=== PATIENT | male | born 1995 | race Caucasian/White ===

== ENCOUNTER 2017-03-01 09:11 | Day surgery (SDC) | payer OTHER ==
[~2017-03-01] VITALS: Ht 180.3 cm; Wt 102.1 kg
--- NOTE | ~2017-03-01 | OP ---
PATIENT NAME: JOSE RAUL THACKER MEDICAL RECORD: [id number] :95 LOCATION:[facility] ADMISSION DATE: SURGEON: MAURISIO HOWELL MD DATE OF OPERATION: 03/01/2017 PREOPERATIVE DIAGNOSES: Chronic pharyngitis and adenotonsillar hypertrophy. POSTOPERATIVE DIAGNOSES: Chronic pharyngitis and adenotonsillar hypertrophy. PROCEDURE: Tonsillectomy and adenoidectomy. SURGEON: Maurisio Howell MD ANESTHESIA: General orotracheal. BLOOD LOSS: Less than 5 cc. SPECIMENS: Right and left tonsil. COMPLICATIONS: None. DISPOSITION: Recovery stable. FINDINGS: Enormous 4+ cryptic tonsils. PROCEDURE NOTE: He was brought to the operating room and placed in supine position, sedated and intubated by anesthesia. The table was turned 90 degrees. Head drapes applied and was positioned for tonsillectomy. Using a headlight, a Damir-Bruce mouth gag was carefully inserted and elevated on a towel on the patient's chest. The palate was examined and palpated. It was normal. A red rubber catheter was placed through the left side of the nose into the pharynx and grasped with tonsil clamp to retract the soft palate. Using a mirror, the nasopharynx was examined. Suction cautery on a setting of 35 was used to ablate and suction the adenoid pad with no significant bleeding. The choanae and eustachian orifices were normal bilaterally. The red rubber catheter was let down and removed. The right tonsil was grasped at the superior pole with a straight Allis clamp. Spatula tip cautery on a setting of 9 was used to dissect out the tonsil along its capsule, preserving the anterior tonsillar and posterior tonsillar pillars. The left tonsil was removed in the same fashion. Then, both sides of the nose were irrigated with saline. The pharynx was suctioned. Tonsillar fossae were agitated. Suction cautery on a setting of 20 was used to control minimal oozing. With the field clean and dry, he was awakened, extubated, and transported to recovery in good condition. No complications. TRANSINT:[id number] Voice Confirmation ID: [id number] DOCUMENT ID: [id number] OPERATIVE REPORT [id number] JOSE RAUL THACKER MAURISIO HOWELL MD CC: [id number] DICTATION DATE: 03/01/17 1429 PROTOTYPE MODEL MAKER: 03/01/17 2348 [facility] 03/01/17 [place] [id number] [place] [id number]
--- NOTE | 2017-03-01 10:57 | HP ---
PATIENT: JOSÉ MIGUEL THACKER MEDICAL RECORD: [id number] ACCOUNT: [id number] LOCATION:[facility] : 95 ADMISSION DATE: 03/01/17 HISTORY AND PHYSICAL EXAMINATION Preoperative History and Physical HISTORY OF PRESENT ILLNESS: José Miguel is 21 years old. He has been having problems with recurrent pharyngitis and chronic tonsillitis as well as obstructive symptoms. He is being admitted for tonsillectomy and adenoidectomy. PAST MEDICAL HISTORY: Otherwise negative. PAST SURGICAL HISTORY: None. CURRENT MEDICATIONS: Adipex. ALLERGIES: No known drug allergies. PHYSICAL EXAMINATION: GENERAL: He is healthy appearing, developmentally normal. FACE: Normal, symmetric, no lesions. EYES: Sclerae and conjunctivae are normal. EARS: Canals and TMs are normal. NOSE: No mass, polyps or drainage. ORAL CAVITY AND OROPHARYNX: A 4+ cryptic tonsils. NECK: No masses, no adenopathy. CHEST: Clear. CARDIOVASCULAR: Regular rate and rhythm, no murmur. EXTREMITIES: Normal. IMPRESSION: Chronic pharyngitis as well as adenotonsillar hypertrophy. PLAN: Tonsillectomy and adenoidectomy. TRANSINT:[id number] Voice Confirmation ID: [id number] DOCUMENT ID: [id number] MAURISIO CALZADA MD at 1057 CC: [id number] DICTATION DATE: 02/27/17 1559 NAVIGATION TEACHER: 02/27/17 1625 [facility] [address] [place] [address]
[2017-03-01] MEDS ORDERED: CYCLOBENZAPRINE10 MG PO (11:59)
[2017-03-01 12:09] VITALS: BP 106/64; Ht 180.3 cm; Wt 102.1 kg
--- NOTE | 2017-03-01 18:02 | NUR ---
1650--IV DC'D, PT UP TO DRESS. LAKISHA MIRANDA 1700--DISCHARGE INSTRUCTIONS GIVEN, PT VERBALIZES UNDERSTANDING. PT OFF UNIT VIA WC. LAKISHA MIRANDA
== END 2017-03-01 17:00 | disposition home or self-care (01) ==
LOC: D.OPS 09:11 → D.PAN 11:15 → D.OPS 17:00
DX: J35.01 Chronic tonsillitis (principal); J35.3 Hypertrophy of tonsils with hypertrophy of adenoids

== ENCOUNTER 2017-09-14 11:07 | Emergency (ER) | payer OTHER ==
[2017-03-01 12:09] VITALS: BMI 31.4
[~2017-09-14 11:07] MED LIST: CYCLOBENZAPRINE10 MG PO
[2017-09-14 11:45] LABS: HEMATOCRIT 43.1 % (42.0-54.0); HEMOGLOBIN 14.7 g/dL (13.5-17.5); MCHC 34.1 g/dL (31.0-37.0); MEAN PLATELET VOLUME 9.8 fL (7.4-10.4); PLATELET COUNT 235 10x3/uL (130-400); RDW 12.3 % (11.5-14.5); WBC 6.5 10x3/uL (4.8-10.8)
[2017-09-14 12:16] LABS: EOSINOPHILS 2 % (0-7); LYMPHOCYTES 58 % (15-50); MONOCYTES 4 % (2-11); NEUTROPHILS 36 % (40-80); PLATELET ESTIMATE NORMAL
== END 2017-09-14 13:31 | disposition home or self-care (01) ==
LOC: D.ER 11:07
PROVIDERS: Emergency Medicine
DX: R10.9 Unspecified abdominal pain (principal); K58.9 Irritable bowel syndrome, unspecified

== ENCOUNTER 2018-11-17 20:06 | Emergency (ER) | payer SELFPAY ==
[~2018-11-17] VITALS: Ht 180.3 cm; Wt 140.9 kg
[2018-11-17 20:47] VITALS: Ht 180.3 cm; Wt 140.9 kg
[2018-11-17 21:05] LABS: BASOPHILS 0.2 % (0-2); EOSINOPHILS 0.8 % (0-7); HEMATOCRIT 46.5 % (42.0-54.0); HEMOGLOBIN 15.8 g/dL (13.5-17.5); IMMATURE GRANULOCYTES 0.1 % (0-5); MCH 29.6 pg (26.0-34.0); MCV 87.2 fL (80.0-100.0); MEAN PLATELET VOLUME 10.4 fL (7.4-10.4); MONOCYTES 7.2 % (2-11); NEUTROPHILS 44.7 % (40-80); PLATELET COUNT 248 10x3/uL (130-400); RBC 5.33 10x6/uL (4.20-6.10); RDW 12.6 % (11.5-14.5); WBC 8.6 10x3/uL (4.8-10.8)
[2018-11-17 21:17] LABS: APTT 38.5 SECONDS (22.8-39.4); INR 1.22 (0.85-1.17); PROTIME 14.9 SECONDS (11.6-15.0)
[2018-11-17 21:22] LABS: ALKALINE PHOSPHATASE 61 U/L (46-116); ALT (SGPT) 92 U/L (10-68); BILIRUBIN - TOTAL 0.25 mg/dL (0.2-1.3); CALC OSMOLALITY 277 mosm/kg (275-300); CALCIUM 9.1 mg/dL (8.5-10.1); CARBON DIOXIDE 24.2 mmol/L (21.0-32.0); CHLORIDE - SERUM 103 mmol/L (98-107); GLUCOSE 89 mg/dL (74-106); POTASSIUM - SERUM 3.9 mmol/L (3.5-5.1); SODIUM 140 mmol/L (136-145); UREA NITROGEN 13 mg/dL (7-18); eGFR NON AFRICAN AMERICAN > 90 mL/min (90-120)
[2018-11-17 21:34] LABS: CKMB 0.8 U/L (0.0-3.6); CREATINE KINASE 114 UL (21-232)
[2018-11-17 21:39] LABS: TROPONIN-I < 0.017 ng/mL (0.000-0.060)
[2018-11-17 22:18] VITALS: BP 121/71
== END 2018-11-17 22:05 | disposition home or self-care (01) ==
LOC: D.ER 20:06
PROVIDERS: Family Medicine
DX: R07.89 Other chest pain (principal)